=== PATIENT | female | born 1985 | race Caucasian/White ===

== ENCOUNTER 2018-03-23 18:03 | Emergency (ER) | payer MEDICAID ==
--- NOTE | 2018-03-23 18:46 | ED Physician Documentation ---
PD HPI NVD - Stated complaint Stated Complaint: VOMITING - Chief complaint Chief Complaint: General - History obtained from History obtained from: Patient - History of Present Illness Timing - onset: Today (she has had less appetite and easy satiety, not eating much and some nausea at times. Today had not had anything to eat and little to drink, and then got nauseated with vomiting. Feeling lightheaded.) Timing - details: Gradual onset, Still present Associated symptoms: Near syncope / syncope, Loss of appetite. No: Fever, Abdominal pain (but nausea and upset stomach easily for days to weeks.), Dizzy, Dysuria, Hematuria, Vaginal bleeding Contributing factors: No: Sick contact, Bad food, Travel, Recent antibiotics Worsened by: Eating Similar symptoms before: Has not had sx before Recently seen: Not recently seen Review of Systems Constitutional: denies: Fever, Chills Nose: denies: Rhinorrhea / runny nose, Congestion Throat: denies: Sore throat Cardiac: denies: Chest pain / pressure, Palpitations Respiratory: denies: Dyspnea, Cough GI: reports: Nausea, Vomiting (today). denies: Abdominal Pain, Abdominal Swelling, Diarrhea, Hematemesis, Bloody / black stool : denies: Dysuria, Frequency, Missed period Skin: denies: Rash Musculoskeletal: denies: Neck pain, Back pain Neurologic: reports: Generalized weakness, Near syncope. 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: Ovarian cysts Psych: Anxiety - Past Surgical History Past Surgical History: Yes - Present Medications Home Medications: Ambulatory Orders Medication Instructions Recorded Confirmed raNITIdine [Zantac] 150 mg PO DAILY #30 tablet 03/23/18 - Allergies Allergies/Adverse Reactions: Allergies Allergy/AdvReac Type Severity Reaction Status Date / Time codeine Allergy Hives Verified 03/23/18 18:14 Penicillins Allergy Hives Verified 03/23/18 18:14 - Social History Does the pt smoke?: No Smoking Status: Never smoker Does the pt drink ETOH?: No Does the pt have substance abuse?: No - Immunizations Immunizations are current?: Yes Immunizations: TDAP current <10years PD ED PE NORMAL - Vitals Vital signs reviewed: Yes (tachycardic) - General General: Alert and oriented X 3, No acute distress, Well developed/nourished - HEENT HEENT: Pharynx benign - Neck Neck: Supple, no meningeal sign, No adenopathy. No: Thyroid normal (some feeling of fullness in thyroid area. ) - Cardiac Cardiac: RRR, No murmur - Respiratory Respiratory: Clear bilaterally - Abdomen Abdomen: Normal bowel sounds, Soft, Non tender, Non distended, No organomegaly - Female Female : Deferred - Rectal Rectal: Deferred - Back Back: No CVA TTP - Derm Derm: Normal color, Warm and dry - Extremities Extremities: No deformity, No tenderness to palpate, Normal ROM s pain, No edema , No calf tenderness / cord - Neuro Neuro: Alert and oriented X 3, No motor deficit, Normal speech Results - Vitals Vitals: Oxygen O2 Source Room air - Labs Labs: Laboratory Tests 03/23/18 03/23/18 03/23/18 18:50 18:50 19:36 WBC 6.6 RBC 5.17 Hgb 13.8 Hct 42.4 MCV 82.1 MCH 26.7 L MCHC 32.6 RDW 13.6 Plt Count 230 MPV 9.7 Neut # 5.0 Lymph # 1.2 L [place] # 0.3 Eos # 0.1 Baso # 0.1 Absolute Nucleated RBC 0.00 Nucleated RBC % 0.0 Sodium 134 L Potassium 3.3 L Chloride 105 Carbon Dioxide 22 Anion Gap 7.0 BUN 10 Creatinine 0.7 Estimated GFR (MDRD) 96 Glucose 133 H Calcium 8.5 Magnesium 1.8 Total Bilirubin 0.2 AST 16 ALT < 10 L Alkaline Phosphatase 33 L Total Protein 6.3 L Albumin 3.7 Globulin 2.6 Albumin/Globulin Ratio 1.4 Lipase 26 TSH 3.12 Urine Color Urine Clarity Urine pH Ur Specific [place] Urine Protein Urine Glucose (UA) Urine Ketones Urine Occult Blood Urine Nitrite Urine Bilirubin Urine Urobilinogen Ur Leukocyte Esterase Ur Microscopic Review Urine Culture Comments Urine HCG, Qual 03/23/18 20:12 WBC RBC Hgb Hct MCV MCH MCHC RDW Plt Count MPV Neut # Lymph # [place] # Eos # Baso # Absolute Nucleated RBC Nucleated RBC % Sodium Potassium Chloride Carbon Dioxide Anion Gap BUN Creatinine Estimated GFR (MDRD) Glucose Calcium Magnesium Total Bilirubin AST ALT Alkaline Phosphatase Total Protein Albumin Globulin Albumin/Globulin Ratio Lipase TSH Urine Color YELLOW Urine Clarity CLEAR Urine pH 6.0 Ur Specific [place] 1.010 Urine Protein NEGATIVE Urine Glucose (UA) NEGATIVE Urine Ketones 15 H Urine Occult Blood NEGATIVE Urine Nitrite NEGATIVE Urine Bilirubin NEGATIVE Urine Urobilinogen 0.2 (NORMAL) Ur Leukocyte Esterase NEGATIVE Ur Microscopic Review NOT INDICATED Urine Culture Comments NOT INDICATED Urine HCG, Qual NEGATIVE PD MEDICAL DECISION MAKING - ED course Complexity details: considered differential (she has not had appetite and with easy satiety and then just gets "busy" with not eating or drinking regularly. Seemed to get dehydrated with symptoms today and feels better with fluids. ), d/ w patient Departure - Departure Disposition: Home, Self Care Clinical Impression: Near syncope, Dehydration Gastritis Qualifiers: Gastritis type: unspecified gastritis Chronicity: acute Gastritis bleeding: without bleeding Qualified Code(s): K29.00 - Acute gastritis without bleeding Condition: Stable Record reviewed to determine appropriate education?: Yes Instructions: ED Dehydration, ED Gastritis Follow-Up: Bisi Branch ARNP [Primary Care Provider] - Prescriptions: raNITIdine [Zantac] 150 mg PO DAILY #30 tablet Comments: Drink lots of fluids daily, at least 2 L bottles daily. Eat regularly. I wonder if you are lack of appetite and upset stomach are related to an irritation of the stomach called gastritis. Try ranitidine daily for a few weeks to a month and see if overall her symptoms are better. Follow-up with your primary care in about a week, call for an appointment. Your basic blood tests here as well as electrolytes and thyroid test are normal. Discharge Date/Time: 03/23/18 21:18
[2018-03-23] MEDS ORDERED: FAMOTIDINE 20 MG/50 ML 50 ML IV ONE (19:04)
[2018-03-23] MEDS ORDERED: SODIUM CHLORIDE 0.9% 1,000 ML IV ONE ×2 (19:04)
[2018-03-23] MEDS ORDERED: ONDANSETRON 4 MG/2 ML VIAL IVP STA (19:04)
[2018-03-23 19:16] LABS: BASOPHILS # (AUTO) 0.1 10^3/uL (0.0-0.1); BASOPHILS % (AUTO) 1.1 %; EOSINOPHILS # (AUTO) 0.1 10^3/uL (0.0-0.7); EOSINOPHILS % (AUTO) 0.9 %; HGB - HEMOGLOBIN 13.8 g/dL (12.0-16.0); LYMPHOCYTES # (AUTO) 1.2 10^3/uL (1.5-3.5); LYMPHOCYTES % (AUTO) 18.2 %; MEAN CORPUSCULAR HEMOGLOBIN 26.7 pg (27.0-31.0); MEAN CORPUSCULAR HGB CONC 32.6 g/dL (32.0-36.0); MEAN CORPUSCULAR VOLUME 82.1 fL (81.0-99.0); MEAN PLATELET VOLUME 9.7 fL (7.9-10.8); MONOCYTES # (AUTO) 0.3 10^3/uL (0.0-1.0); MONOCYTES % (AUTO) 4.1 %; NEUTROPHILS % (AUTO) 75.7 %; PLT - PLATELET COUNT 230 10^3/uL (130-450); RED BLOOD COUNT 5.17 10^6/uL (4.20-5.40); RED CELL DISTRIBUTION WIDTH 13.6 % (12.0-15.0); WHITE BLOOD COUNT 6.6 x10^3/uL (4.8-10.8)
[2018-03-23 20:21] LABS: BILIRUBIN,URINE NEGATIVE (NEGATIVE); GLUCOSE, URINE (UA) NEGATIVE (NEGATIVE); KETONES,URINE (UA) 15 mg/dL (NEGATIVE); LEUKOCYTE ESTERASE, URINE NEGATIVE (NEGATIVE); NITRITE,URINE NEGATIVE (NEGATIVE); OCCULT BLOOD,URINE NEGATIVE (NEGATIVE); PROTEIN,URINE NEGATIVE (NEGATIVE); UROBILINOGEN,URINE 0.2 (NORMAL) E.U./dL (NORMAL)
[2018-03-23 20:21] LABS: ALBUMIN 3.7 g/dL (3.2-5.5); ALBUMIN/GLOBULIN RATIO 1.4 (1.0-2.2); ALKALINE PHOSPHATASE 33 IU/L (42-121); ALT ALANINE AMINOTRANSFERASE < 10 IU/L (10-60); AST ASPARTATE AMINOTRANSFERASE 16 IU/L (10-42); BILIRUBIN,TOTAL 0.2 mg/dL (0.2-1.0); BUN - BLOOD UREA NITROGEN 10 mg/dL (6-20); CALCIUM 8.5 mg/dL (8.5-10.3); CARBON DIOXIDE - CO2 22 mmol/L (21-32); CHLORIDE 105 mmol/L (101-111); CREATININE 0.7 mg/dL (0.4-1.0); GFR - MDRD 96 (>89); GLUCOSE 133 mg/dL (70-100); LIPASE 26 U/L (22-51); MAGNESIUM 1.8 mg/dL (1.7-2.8); SODIUM 134 mmol/L (135-145); TOTAL PROTEIN 6.3 g/dL (6.7-8.2)
[2018-03-23 20:30] LABS: CLARITY,URINE CLEAR (CLEAR); HCG UR QUAL NEGATIVE
[2018-03-23 21:18] VITALS: BP 125/74
== END 2018-03-23 21:18 | disposition home or self-care (01) ==
LOC: ED 18:03
DX: R55 Syncope and collapse (principal); E86.0 Dehydration; K29.00 Acute gastritis without bleeding
CPT/HCPCS: 36415; 80053; 81001; 81003; 81025; 83690; 83735; 84443; 85025; 87086; 96361; 96365; 96375; 99283; 99284

== ENCOUNTER 2018-04-17 09:28 | Outpatient (CLI) | payer MEDICAID ==
--- NOTE | 2018-04-17 10:52 | Ultrasound Report ---
Procedure Date: 04/17/2018 Accession Number: [id number] / [id number] Procedure: US - Pelvic w/Transvaginal CPT Code: FULL RESULT: EXAM: Pelvic w/Transvaginal DATE: 04/17/2018 10:34 AM CLINICAL HISTORY: PELVIC PAIN,CHRONIC COMPARISON: 12/09/2014 pelvic ultrasound TECHNIQUE: Real time scanning by the answerer was saved static images reviewed. Transabdominal evaluation for global assessment; endovaginal scanning for detailed assessment of the uterus and adnexal structures. FINDINGS: Uterus: 9.7 x 3.2 x 4.8 cm, volume 78 cc. Anteverted position. Normal overall size and echotexture. Masses: None. Endometrium: 9.4 mm. Normal. Cervix: Unremarkable. Right Ovary: Surgically absent. No adnexal mass is seen. Left Ovary/Adnexa: 3.2 x 1.9 x 2.7 cm, volume 8.5 cc. Normal echotexture. Blood flow is present. No adnexal mass is seen. Simple cyst 1.7 x 1.4 x 1.9 cm. Free Fluid: None. Other: No significant interval change compared with 12/09/2014. IMPRESSION: Unremarkable pelvic ultrasound status post right oophorectomy. RADIA
== END 2018-04-17 09:29 | disposition home or self-care (01) ==
LOC: DI 09:28
PROVIDERS: ATTEND Nurse Practitioner Family
DX: R10.2 Pelvic and perineal pain (principal); Z90.721 Acquired absence of ovaries, unilateral
CPT/HCPCS: 76830; 76856

== ENCOUNTER 2019-03-08 15:06 | Outpatient (CLI) | payer MEDICAID ==
[2019-03-08 17:35] LABS: ALBUMIN 4.2 g/dL (3.2-5.5); ALBUMIN/GLOBULIN RATIO 1.4 (1.0-2.2); BILIRUBIN,TOTAL 0.8 mg/dL (0.2-1.0); CALCIUM 9.6 mg/dL (8.5-10.3); CREATININE 0.9 mg/dL (0.4-1.0); TOTAL PROTEIN 7.3 g/dL (6.7-8.2)
[2019-03-08 17:54] LABS: BASOPHILS % (AUTO) 0.7 %; EOSINOPHILS # (AUTO) 0.1 10^3/uL (0.0-0.7); EOSINOPHILS % (AUTO) 1.4 %; HGB - HEMOGLOBIN 13.4 g/dL (12.0-16.0); LYMPHOCYTES # (AUTO) 1.3 10^3/uL (1.5-3.5); LYMPHOCYTES % (AUTO) 25.2 %; MEAN CORPUSCULAR HEMOGLOBIN 28.8 pg (27.0-31.0); MEAN CORPUSCULAR HGB CONC 33.6 g/dL (32.0-36.0); MEAN CORPUSCULAR VOLUME 85.9 fL (81.0-99.0); MEAN PLATELET VOLUME 9.7 fL (7.9-10.8); MONOCYTES # (AUTO) 0.4 10^3/uL (0.0-1.0); MONOCYTES % (AUTO) 7.5 %; NEUTROPHILS # (AUTO) 3.4 10^3/uL (1.5-6.6); NEUTROPHILS % (AUTO) 65.2 %; PLT - PLATELET COUNT 262 10^3/uL (130-450); RED BLOOD COUNT 4.65 10^6/uL (4.20-5.40); RED CELL DISTRIBUTION WIDTH 13.4 % (12.0-15.0); WHITE BLOOD COUNT 5.2 x10^3/uL (4.8-10.8)
== END 2019-03-08 15:07 | disposition home or self-care (01) ==
LOC: LAB.F 15:06
PROVIDERS: ATTEND Registered Nurse
DX: R13.10 Dysphagia, unspecified (principal)
CPT/HCPCS: 36415; 80050

== ENCOUNTER 2020-02-03 19:17 | Outpatient (CLI) | payer MEDICAID | END 2020-02-03 19:18 | disposition home or self-care (01) | LOC: COV 19:17 | PROVIDERS: ATTEND Family Medicine | DX: R05 Cough (principal); R50.9 Fever, unspecified | CPT/HCPCS: 81599 ==

== ENCOUNTER 2020-05-13 09:59 | Outpatient (CLI) | payer MEDICAID | END 2020-05-13 10:00 | disposition home or self-care (01) | LOC: COV 09:59 | PROVIDERS: ATTEND Family Medicine | DX: R50.9 Fever, unspecified (principal); R05 Cough; R06.02 Shortness of breath; M79.10 Myalgia, unspecified site; R53.83 Other fatigue; J02.9 Acute pharyngitis, unspecified; R09.81 Nasal congestion; R11.2 Nausea with vomiting, unspecified; Z20.828 Contact with and (suspected) exposure to other viral communicable diseases ==

== ENCOUNTER 2020-08-27 07:17 | Outpatient (CLI) | payer MEDICAID ==
[2020-08-27 15:42] LABS: BASOPHILS # (AUTO) 0.1 10^3/uL (0.0-0.1); BASOPHILS % (AUTO) 1.5 %; EOSINOPHILS # (AUTO) 0.1 10^3/uL (0.0-0.7); EOSINOPHILS % (AUTO) 1.8 %; HGB - HEMOGLOBIN 13.7 g/dL (12.0-16.0); LYMPHOCYTES % (AUTO) 29.5 %; MEAN CORPUSCULAR HGB CONC 32.2 g/dL (32.0-36.0); MEAN CORPUSCULAR VOLUME 87.1 fL (81.0-99.0); MEAN PLATELET VOLUME 11.8 fL (7.9-10.8); MONOCYTES # (AUTO) 0.3 10^3/uL (0.0-1.0); MONOCYTES % (AUTO) 7.7 %; NEUTROPHILS % (AUTO) 59.2 %; PLT - PLATELET COUNT 254 10^3/uL (130-450); RED BLOOD COUNT 4.89 10^6/uL (4.20-5.40); RED CELL DISTRIBUTION WIDTH 13.7 % (12.0-15.0); WHITE BLOOD COUNT 3.4 x10^3/uL (4.8-10.8)
[2020-08-27 16:04] LABS: ALBUMIN 4.1 g/dL (3.2-5.5); ALBUMIN/GLOBULIN RATIO 1.6 (1.0-2.2); ALKALINE PHOSPHATASE 42 IU/L (42-121); ALT ALANINE AMINOTRANSFERASE 16 IU/L (10-60); AST ASPARTATE AMINOTRANSFERASE 16 IU/L (10-42); BILIRUBIN,TOTAL 0.6 mg/dL (0.2-1.0); BUN - BLOOD UREA NITROGEN 13 mg/dL (6-20); CALCIUM 9.3 mg/dL (8.5-10.3); CARBON DIOXIDE - CO2 26 mmol/L (21-32); CHLORIDE 107 mmol/L (101-111); CHOL/HDL RATIO 2.6 (<4.4); CHOLESTEROL 185 mg/dL; CREATININE 0.8 mg/dL (0.4-1.0); GLUCOSE 89 mg/dL (70-100); HDL CHOLESTEROL 71 mg/dL; SODIUM 139 mmol/L (135-145); TOTAL PROTEIN 6.7 g/dL (6.7-8.2)
[2020-08-27 16:44] LABS: FOLLICLE STIMULATING HORMONE 4.99 mIU/mL
[2020-08-27 16:45] LABS: LUTEINIZING HORMONE 5.66 mIU/mL
== END 2020-08-27 07:18 | disposition home or self-care (01) ==
LOC: LAB.S 07:17
PROVIDERS: ATTEND Registered Nurse
DX: I10 Essential (primary) hypertension (principal); Z78.0 Asymptomatic menopausal state
CPT/HCPCS: 36415; 80050; 80061; 81599; 83001; 83002; 83520; 83721

== ENCOUNTER 2020-09-03 16:34 | Outpatient (CLI) | payer MEDICAID ==
--- NOTE | 2020-09-04 09:54 | Ultrasound Report ---
PROCEDURE: Pelvic w/Transvaginal INDICATIONS: PERIMENOPAUSAL STATE TECHNIQUE: Real-time scanning was performed of the pelvic organs, with image documentation. Additional endovagi nal scanning was necessary due to incomplete visualization of the adnexal and endometrial structures by transabdominal scanning. COMPARISON: Pelvic ultrasound 6 image , 12/09/2014 FINDINGS: Transabdominal scanning: Limited scanning through the kidneys shows no hydronephrosis. No pathologi c free abdominal or pelvic fluid. Endovaginal scanning: Uterus: Uterus is normal in size at 8.8 x 3.6 x 5.3 cm. The endometrium measures 8 mm in combined t hickness. Nabothian cysts are noted. Ovaries: Right ovary is been removed. Left ovary measures 4.0 x 2.7 x 2.9 cm. Less than 12 follicles are noted. IMPRESSION: 1. Right ovarian removal. Otherwise, unremarkable exam. Reviewed by: Destini Mchugh MD on 09/04/2020 9:53 AM PST Approved by: Destini Mchugh MD on 09/04/2020 9:53 AM PST Station ID: [id number]
== END 2020-09-03 16:35 | disposition home or self-care (01) ==
LOC: DI 16:34
PROVIDERS: ATTEND Obstetrics & Gynecology
DX: Z78.0 Asymptomatic menopausal state (principal); Z90.721 Acquired absence of ovaries, unilateral
CPT/HCPCS: 76830; 76856

== ENCOUNTER 2021-09-06 11:38 | Outpatient (CLI) | payer MEDICAID ==
--- NOTE | 2021-09-06 13:01 | Ultrasound Report ---
PROCEDURE: OB First Trimester w/TV INDICATIONS: POSITIVE TEST OUTSIDE/PRIOR DATING DATA: Last menstrual period (LMP): Unknown. LMP-based estimated date of delivery (XIMENA): Unknown. First dating scan (date and location): 09/06/2022. Estimated date of delivery (XIMENA) from first dating scan: 05/01/22. TECHNIQUE: Real-time scanning was performed of the fetus and maternal pelvic organs, with image documentation. Endovaginal scanning was also performed to better visualize the fetus and maternal ovaries. COMPARISON: FINDINGS: Embryo: Intrauterine gestational sac is identified measuring 1.2 cm corresponding to 6 weeks 1 day. No pole. Heart rate: Not detected Measurement variability in dating: +/- 4 weeks by LMP, +/- 7 days by mean sac diameter (use before 6 weeks gestation if crown-rump length not able to be measured), +/- 5 days by crown-rump length (6-12 weeks gestation). Maternal organs: Ovaries demonstrate a left corpus luteal cyst. IMPRESSION: Intrauterine gestational sac measuring 6 weeks 1 day. No pole or heart tones. Recommend corre lation to [facility] and short interval imaging followup. Reviewed by: Destini Mchugh MD on 09/06/2021 1:00 PM PST Approved by: Destini Mchugh MD on 09/06/2021 1:00 PM PST Station ID: [id number]
== END 2021-09-06 11:39 | disposition home or self-care (01) ==
LOC: DI 11:38
PROVIDERS: ATTEND Obstetrics & Gynecology
DX: Z32.01 Encounter for pregnancy test, result positive (principal)

== ENCOUNTER 2021-09-17 08:00 | Outpatient (CLI) | payer MEDICAID ==
[2021-09-17 21:59] LABS: BACTERIAL VAGINOSIS DNA NEGATIVE (NEGATIVE); CANDIDA GLABRATA DNA NEGATIVE (NEGATIVE); CANDIDA GROUP DNA POSITIVE (NEGATIVE); CANDIDA KRUSEI DNA NEGATIVE (NEGATIVE); TRICHOMONAS VAGINALIS DNA NEGATIVE (NEGATIVE)
== END 2021-09-17 23:59 | disposition home or self-care (01) ==
LOC: LAB 08:00
PROVIDERS: ATTEND Obstetrics & Gynecology
DX: L29.8 Other pruritus (principal)
CPT/HCPCS: 87661; 87801

== ENCOUNTER 2021-11-15 08:00 | Outpatient (CLI) | payer MEDICAID ==
[2021-11-15 19:18] LABS: BACTERIAL VAGINOSIS DNA POSITIVE (NEGATIVE); CANDIDA GLABRATA DNA NEGATIVE (NEGATIVE); CANDIDA GROUP DNA NEGATIVE (NEGATIVE); CANDIDA KRUSEI DNA NEGATIVE (NEGATIVE); TRICHOMONAS VAGINALIS DNA NEGATIVE (NEGATIVE)
[2021-11-15 22:02] LABS: CHLAMYDIA TRACHOMATIS DNA NEGATIVE (NEGATIVE); NEISSERIA GONORRHOEAE DNA NEGATIVE (NEGATIVE); TRICHOMONAS VAGINALIS DNA NEGATIVE (NEGATIVE)
== END 2021-11-15 23:59 | disposition home or self-care (01) ==
LOC: LAB.WC 08:00
PROVIDERS: ATTEND Obstetrics & Gynecology
DX: N89.8 Other specified noninflammatory disorders of vagina (principal)
CPT/HCPCS: 87491; 87591; 87661; 87801

== ENCOUNTER 2021-12-02 11:40 | Outpatient (CLI) | payer MEDICAID | END 2021-12-02 23:59 | disposition home or self-care (01) | LOC: LAB.S 11:40 | PROVIDERS: ATTEND Physician Assistant Medical | DX: J39.2 Other diseases of pharynx (principal) | CPT/HCPCS: 87070 ==

== ENCOUNTER 2021-12-22 08:00 | Outpatient (CLI) | payer MEDICAID ==
[2021-12-22 21:10] LABS: CHLAMYDIA TRACHOMATIS DNA NEGATIVE (NEGATIVE); NEISSERIA GONORRHOEAE DNA NEGATIVE (NEGATIVE); TRICHOMONAS VAGINALIS DNA NEGATIVE (NEGATIVE)
[2021-12-22 23:10] LABS: BACTERIAL VAGINOSIS DNA NEGATIVE (NEGATIVE); CANDIDA GLABRATA DNA NEGATIVE (NEGATIVE); CANDIDA GROUP DNA POSITIVE (NEGATIVE); CANDIDA KRUSEI DNA NEGATIVE (NEGATIVE); TRICHOMONAS VAGINALIS DNA NEGATIVE (NEGATIVE)
== END 2021-12-22 23:59 | disposition home or self-care (01) ==
LOC: LAB.WC 08:00
PROVIDERS: ATTEND Nurse Practitioner Obstetrics & Gynecology
DX: K13.79 Other lesions of oral mucosa (principal); N76.0 Acute vaginitis; J39.2 Other diseases of pharynx
CPT/HCPCS: 81599; 87070; 87205; 87254; 87255; 87491; 87591; 87661; 87801

== ENCOUNTER 2021-12-23 11:05 | Outpatient (CLI) | payer MEDICAID ==
[2021-12-24 10:35] LABS: HEPATITIS B SURFACE ANTIGEN NON-REACTIVE (NON-REACTIVE); HEPATITIS C ANTIBODY NON-REACTIVE (NON-REACTIVE)
[2021-12-25 12:47] LABS: HSV 1 IGG TYPE SPECIFIC AB 2.19 index; HSV 2 IGG TYPE SPECIFIC AB <0.90 index
== END 2021-12-23 11:06 | disposition home or self-care (01) ==
LOC: LAB.S 11:05
PROVIDERS: ATTEND Nurse Practitioner Obstetrics & Gynecology
DX: K13.79 Other lesions of oral mucosa (principal); J39.2 Other diseases of pharynx; N76.0 Acute vaginitis
CPT/HCPCS: 36415; 86592; 86695; 86696; 86803; 87340; 87389

== ENCOUNTER 2021-12-28 10:27 | Outpatient (CLI) | payer MEDICAID ==
[2021-12-29 13:31] LABS: HIV AG/AB 4TH GEN NON-REACTIVE (NON-REACTIVE)
== END 2021-12-28 10:28 | disposition home or self-care (01) ==
LOC: LAB.S 10:27
PROVIDERS: ATTEND Nurse Practitioner Obstetrics & Gynecology
DX: K13.79 Other lesions of oral mucosa (principal); J39.2 Other diseases of pharynx; N76.0 Acute vaginitis
CPT/HCPCS: 36415; 87389

== ENCOUNTER 2022-01-20 08:00 | Outpatient (CLI) | payer MEDICAID ==
[2022-01-20 22:31] LABS: BACTERIAL VAGINOSIS DNA NEGATIVE (NEGATIVE); CANDIDA GLABRATA DNA NEGATIVE (NEGATIVE); CANDIDA GROUP DNA NEGATIVE (NEGATIVE); CANDIDA KRUSEI DNA NEGATIVE (NEGATIVE); TRICHOMONAS VAGINALIS DNA NEGATIVE (NEGATIVE)
== END 2022-01-20 23:59 | disposition home or self-care (01) ==
LOC: LAB.WC 08:00
PROVIDERS: ATTEND Obstetrics & Gynecology
DX: N76.0 Acute vaginitis (principal)
CPT/HCPCS: 87661; 87801

== ENCOUNTER 2022-02-28 08:00 | Outpatient (CLI) | payer MEDICAID ==
[2022-02-28 20:25] LABS: BILIRUBIN,URINE NEGATIVE (NEGATIVE); GLUCOSE, URINE (UA) NEGATIVE (NEGATIVE); KETONES,URINE (UA) 15 mg/dL (NEGATIVE); LEUKOCYTE ESTERASE, URINE NEGATIVE (NEGATIVE); NITRITE,URINE NEGATIVE (NEGATIVE); OCCULT BLOOD,URINE NEGATIVE (NEGATIVE); PROTEIN,URINE NEGATIVE (NEGATIVE); UROBILINOGEN,URINE 0.2 (NORMAL) E.U./dL (NORMAL)
[2022-02-28 20:34] LABS: CLARITY,URINE CLEAR (CLEAR); RBC,URINE 0-5 /HPF (0-5); WBC,URINE 0-3 /HPF (0-5)
[2022-02-28 20:35] LABS: BACTERIA,URINE None Seen /HPF (None Seen); SQUAMOUS EPITHELIAL CELL,UR FEW Squamous (<= Few)
[2022-02-28 21:45] LABS: BACTERIAL VAGINOSIS DNA POSITIVE (NEGATIVE)
[2022-02-28 21:46] LABS: CANDIDA GLABRATA DNA NEGATIVE (NEGATIVE); CANDIDA GROUP DNA NEGATIVE (NEGATIVE); CANDIDA KRUSEI DNA NEGATIVE (NEGATIVE); TRICHOMONAS VAGINALIS DNA NEGATIVE (NEGATIVE)
[2022-02-28 23:01] LABS: CHLAMYDIA TRACHOMATIS DNA NEGATIVE (NEGATIVE); NEISSERIA GONORRHOEAE DNA NEGATIVE (NEGATIVE)
== END 2022-02-28 23:59 | disposition home or self-care (01) ==
LOC: LAB.S 08:00
PROVIDERS: ATTEND Physician Assistant Medical
DX: R30.0 Dysuria (principal); N89.8 Other specified noninflammatory disorders of vagina
CPT/HCPCS: 81001; 81514; 87086; 87491; 87591; 87661

== ENCOUNTER 2022-05-17 15:52 | Outpatient (CLI) | payer MEDICAID ==
--- NOTE | 2022-05-17 16:41 | XRAY Report ---
PROCEDURE: Cervical Spine w/Flex/Ext INDICATIONS: TINGLING IN HANDS TECHNIQUE: 7 views of the cervical spine were acquired. COMPARISON: MR cervical spine: 614 FINDINGS: Bones: No fractures or dislocations to the C7-T1 level. No suspicious bony lesions. There is rever tal of normal cervical curvature with apex at C5-6. Moderate disc space narrowing is present at C5-6 and C6-7. There is normal range of motion between flexion and extension, with preserved normal bony a lignment. Foramina are patent. Soft tissues: Prevertebral soft tissues are normal in thickness. IMPRESSION: Foramina are patent. Reversal cervical curvature is present as above. Reviewed by: Destini Mchugh MD on 05/17/2022 4:39 PM PDT Approved by: Destini Mchugh MD on 05/17/2022 4:39 PM PDT Station ID: [id number]
== END 2022-05-17 15:53 | disposition home or self-care (01) ==
LOC: DI.S 15:52
PROVIDERS: ATTEND Registered Nurse
DX: R20.2 Paresthesia of skin (principal); R20.0 Anesthesia of skin

== ENCOUNTER 2022-09-02 08:00 | Outpatient (CLI) | payer MEDICAID ==
[2022-09-02 15:10] LABS: BILIRUBIN,URINE NEGATIVE (NEGATIVE); GLUCOSE, URINE (UA) NEGATIVE (NEGATIVE); KETONES,URINE (UA) NEGATIVE (NEGATIVE); LEUKOCYTE ESTERASE, URINE NEGATIVE (NEGATIVE); NITRITE,URINE NEGATIVE (NEGATIVE); OCCULT BLOOD,URINE NEGATIVE (NEGATIVE); PH,URINE 6.5 PH (5.0-7.5); PROTEIN,URINE NEGATIVE (NEGATIVE); UROBILINOGEN,URINE 0.2 (NORMAL) E.U./dL (NORMAL)
[2022-09-02 15:11] LABS: CLARITY,URINE CLEAR (CLEAR)
[2022-09-02 15:30] LABS: BACTERIA,URINE None Seen /HPF (None Seen); RBC,URINE None Seen /HPF (0-5); SQUAMOUS EPITHELIAL CELL,UR FEW Squamous (<= Few); WBC,URINE 0-3 /HPF (0-5)
[2022-09-02 22:48] LABS: BACTERIAL VAGINOSIS DNA NEGATIVE (NEGATIVE); CANDIDA GLABRATA DNA NEGATIVE (NEGATIVE); CANDIDA GROUP DNA NEGATIVE (NEGATIVE); CANDIDA KRUSEI DNA NEGATIVE (NEGATIVE); TRICHOMONAS VAGINALIS DNA NEGATIVE (NEGATIVE)
[2022-09-02 23:39] LABS: CHLAMYDIA TRACHOMATIS DNA NEGATIVE (NEGATIVE); NEISSERIA GONORRHOEAE DNA NEGATIVE (NEGATIVE)
== END 2022-09-02 23:58 | disposition home or self-care (01) ==
LOC: LAB.S 08:00
PROVIDERS: ATTEND Emergency Medicine
DX: N71.9 Inflammatory disease of uterus, unspecified (principal); N76.0 Acute vaginitis
CPT/HCPCS: 81001; 81514; 87070; 87086; 87491; 87591; 87661

== ENCOUNTER 2022-12-27 08:00 | Outpatient (CLI) | payer MEDICAID ==
[2022-12-27 22:43] LABS: BACTERIAL VAGINOSIS DNA POSITIVE (NEGATIVE); CANDIDA KRUSEI DNA NEGATIVE (NEGATIVE); TRICHOMONAS VAGINALIS DNA NEGATIVE (NEGATIVE)
[2022-12-27 22:44] LABS: CANDIDA GLABRATA DNA NEGATIVE (NEGATIVE); CANDIDA GROUP DNA NEGATIVE (NEGATIVE)
[2022-12-27 23:56] LABS: CHLAMYDIA TRACHOMATIS DNA NEGATIVE (NEGATIVE)
[2022-12-27 23:57] LABS: NEISSERIA GONORRHOEAE DNA NEGATIVE (NEGATIVE)
== END 2022-12-27 23:59 | disposition home or self-care (01) ==
LOC: LAB.WC 08:00
PROVIDERS: ATTEND Obstetrics & Gynecology
DX: N89.8 Other specified noninflammatory disorders of vagina (principal)
CPT/HCPCS: 81514; 87491; 87591; 87661

== ENCOUNTER 2022-12-28 08:09 | Outpatient (CLI) | payer MEDICAID ==
[2022-12-28 20:51] LABS: ESTIMATED AVERAGE GLUCOSE 105 mg/dL (70-100); HEMOGLOBIN A1c% 5.3 % (4.27-6.07)
== END 2022-12-28 08:10 | disposition home or self-care (01) ==
LOC: LAB.S 08:09
PROVIDERS: ATTEND Obstetrics & Gynecology
DX: R63.1 Polydipsia (principal)
CPT/HCPCS: 36415; 83036

== ENCOUNTER 2023-01-11 14:00 | Outpatient (CLI) | payer MEDICAID ==
[2023-01-12 22:54] LABS: BACTERIAL VAGINOSIS DNA NEGATIVE (NEGATIVE); CANDIDA GLABRATA DNA NEGATIVE (NEGATIVE); CANDIDA GROUP DNA POSITIVE (NEGATIVE); CANDIDA KRUSEI DNA NEGATIVE (NEGATIVE); TRICHOMONAS VAGINALIS DNA NEGATIVE (NEGATIVE)
== END 2023-01-11 23:59 | disposition home or self-care (01) ==
LOC: LAB.WC 14:00
PROVIDERS: ATTEND Obstetrics & Gynecology
DX: N76.0 Acute vaginitis (principal)
CPT/HCPCS: 81514

== ENCOUNTER 2023-02-02 08:00 | Outpatient (CLI) | payer MEDICAID ==
[2023-02-02 22:44] LABS: BACTERIAL VAGINOSIS DNA POSITIVE (NEGATIVE); CANDIDA GLABRATA DNA NEGATIVE (NEGATIVE); CANDIDA GROUP DNA NEGATIVE (NEGATIVE); CANDIDA KRUSEI DNA NEGATIVE (NEGATIVE); TRICHOMONAS VAGINALIS DNA NEGATIVE (NEGATIVE)
== END 2023-02-02 23:59 | disposition home or self-care (01) ==
LOC: LAB.WC 08:00
PROVIDERS: ATTEND Nurse Practitioner
DX: N76.0 Acute vaginitis (principal)
CPT/HCPCS: 81514

== ENCOUNTER 2023-04-28 04:19 | Emergency (ER) | payer MEDICAID ==
--- NOTE | 2023-04-28 04:43 | ED Physician Documentation ---
PD HPI FEMALE - Stated complaint Stated Complaint: FEMALE - Chief complaint Chief Complaint: UTI - History obtained from History obtained from: Patient - Additional information Additional information: HPI from patient. 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 Denies chance of . Has had only two previous UTIs, one of which was in childhood, and thus she cannot say if these symptoms are similar to previous UTIs. Review of Systems Constitutional: denies: Fever GI: denies: Abdominal Pain, Nausea, Vomiting : reports: Dysuria, Frequency. 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 Psych: Anxiety - Past Surgical History Past Surgical History: Yes /VIDEO TAPE TRANSFERRER: Oophrectomy - Present Medications Home Medications: Ambulatory Orders Medication Instructions Recorded Confirmed raNITIdine [Zantac] 150 mg PO DAILY #30 tablet 03/23/18 Nitrofurantoin [Macrobid] 100 mg PO BID #10 cap 04/28/23 Phenazopyridine HCl [Pyridium] 200 mg PO TID PRN #6 tablet 04/28/23 - Allergies Allergies/Adverse Reactions: Allergies Allergy/AdvReac Type Severity Reaction Status Date / Time codeine Allergy Hives Verified 04/28/23 04:38 Penicillins Allergy Hives Verified 04/28/23 04:38 - Social History Does the pt smoke?: No Smoking Status: Never smoker Does the pt drink ETOH?: No Does the pt have substance abuse?: No - Immunizations Immunizations are current?: Yes Immunizations: TDAP current <10years - POLST Patient has POLST: No PD ED PE NORMAL - Vitals Vital signs reviewed: Yes - General General: Alert and oriented X 3, No acute distress, Well developed/nourished - Abdomen Abdomen: Soft, Non tender, Non distended - Back Back: No CVA TTP Results - Vitals Vitals: Vital Signs - 24 hr 04/28/23 04/28/23 04:34 05:56 Temperature 36.6 C Heart Rate 74 71 Respiratory 17 16 Rate Blood Pressure 129/97 H 124/94 H O2 Saturation 100 100 Oxygen O2 Source Room air - Labs Labs: Laboratory Tests 04/28/23 04:58 Urine Color YELLOW Urine Clarity HAZY Urine pH 7.5 Ur Specific [place] 1.020 Urine Protein 30 H Urine Glucose (UA) NEGATIVE Urine Ketones NEGATIVE Urine Occult Blood MODERATE H Urine Nitrite NEGATIVE Urine Bilirubin NEGATIVE Urine Urobilinogen 0.2 (NORMAL) Ur Leukocyte Esterase SMALL H Urine RBC 6-10 H Urine WBC >25 H Ur Squamous Epith Cells RARE Squamous Urine Bacteria Few Ur Microscopic Review INDICATED Urine Culture Comments INDICATED Urine HCG, Qual NEGATIVE PD Medical Decision Making - ED course Complexity details: reviewed results, considered differential, d/w patient ED course: HPI s/o UTI and urinalysis is c/w UTI with 6-10 RBC/hpf and >25 WBC/hpf, rare squamous cells although only few bacteria. UHCG is negative. Results d/w patient. She is given PO pyridium and macrobid with prescriptions for both of these medications electronically submitted to [facility] in [place]. Results d/w patient, return precautions reviewed Departure - Departure Disposition: Home, Self Care Clinical Impression: Urinary tract infection Condition: Good Instructions: ED UTI Cystitis Female Prescriptions: Nitrofurantoin [Macrobid] 100 mg PO BID #10 cap Phenazopyridine HCl [Pyridium] 200 mg PO TID PRN #6 tablet PRN Reason: dysuria Comments: The urinalysis performed tonight is consistent with a urinary tract infection. This would account for your symptoms. You are given a dose of an antibiotic (nitrofurantoin) as well as a dose of phenazopyridine (helps alleviate the symptoms associated with urinary tract infection) in the emergency department And prescriptions for both these medications have been electronically submitted to the [facility] in [place]. Note that only two days worth of the phenazopyridine is being provided because the antibiotic should markedly improve symptoms after 2 days into the antibiotic course. Discharge Date/Time: 04/28/23 05:56
[2023-04-28 05:04] LABS: BILIRUBIN,URINE NEGATIVE (NEGATIVE); GLUCOSE, URINE (UA) NEGATIVE (NEGATIVE); KETONES,URINE (UA) NEGATIVE (NEGATIVE); LEUKOCYTE ESTERASE, URINE SMALL (NEGATIVE); NITRITE,URINE NEGATIVE (NEGATIVE); OCCULT BLOOD,URINE MODERATE (NEGATIVE); PH,URINE 7.5 PH (5.0-7.5); PROTEIN,URINE 30 mg/dL (NEGATIVE); UROBILINOGEN,URINE 0.2 (NORMAL) E.U./dL (NORMAL)
[2023-04-28 05:10] LABS: BACTERIA,URINE Few /HPF (None Seen); CLARITY,URINE HAZY (CLEAR); HCG UR QUAL NEGATIVE; SQUAMOUS EPITHELIAL CELL,UR RARE Squamous (<= Few); WBC,URINE >25 /HPF (0-5)
[2023-04-28] MEDS ORDERED: NITROFURANTOIN MACRO 100 MG CAPSULE PO STA (05:39)
[2023-04-28] MEDS ORDERED: PHENAZOPYRIDINE 100 MG TABLET PO STA (05:39)
[2023-04-28 06:00] VITALS: BP 124/94
== END 2023-04-28 05:56 | disposition home or self-care (01) ==
LOC: ED 04:19
DX: N39.0 Urinary tract infection, site not specified (principal)
CPT/HCPCS: 81001; 81025; 87077; 87086; 99283; A9270; 81003

== ENCOUNTER 2023-06-22 07:39 | Outpatient (CLI) | payer MEDICAID ==
[2023-06-22 14:51] LABS: ALBUMIN 3.9 g/dL (3.2-5.5); ALBUMIN/GLOBULIN RATIO 1.4 (1.0-2.2); ALKALINE PHOSPHATASE 48 IU/L (42-121); ALT ALANINE AMINOTRANSFERASE 16 IU/L (10-60); AST ASPARTATE AMINOTRANSFERASE 18 IU/L (10-42); BILIRUBIN,TOTAL 0.3 mg/dL (0.2-1.0); BUN - BLOOD UREA NITROGEN 11 mg/dL (6-20); CALCIUM 9.3 mg/dL (8.5-10.3); CARBON DIOXIDE - CO2 29 mmol/L (21-32); CHLORIDE 106 mmol/L (101-111); CHOL/HDL RATIO 2.4 (<4.4); CHOLESTEROL 175 mg/dL; CREATININE 0.9 mg/dL (0.6-1.3); GFR - MDRD 70 (>89); GLUCOSE 76 mg/dL (74-104); HDL CHOLESTEROL 73 mg/dL; LDL CHOLESTEROL,CALCULATED 89 mg/dL; LDL/HDL RATIO 1.2 (<4.4); POTASSIUM 4.1 mmol/L (3.5-4.5); SODIUM 137 mmol/L (135-145); TOTAL PROTEIN 6.6 g/dL (6.4-8.9); TRIGLYCERIDES 66 mg/dL (48-352); VLDL CHOLESTEROL 13 mg/dL
[2023-06-22 14:54] LABS: BASOPHILS # (AUTO) 0.1 10^3/uL (0.0-0.1); BASOPHILS % (AUTO) 1.1 %; EOSINOPHILS # (AUTO) 0.2 10^3/uL (0.0-0.7); EOSINOPHILS % (AUTO) 3.2 %; HCT - HEMATOCRIT 41.2 % (37.0-47.0); LYMPHOCYTES # (AUTO) 1.4 10^3/uL (1.5-3.5); LYMPHOCYTES % (AUTO) 30.2 %; MEAN CORPUSCULAR HEMOGLOBIN 27.8 pg (27.0-31.0); MEAN CORPUSCULAR HGB CONC 31.6 g/dL (32.0-36.0); MEAN PLATELET VOLUME 11.2 fL (7.9-10.8); MONOCYTES # (AUTO) 0.4 10^3/uL (0.0-1.0); MONOCYTES % (AUTO) 8.6 %; NEUTROPHILS # (AUTO) 2.7 10^3/uL (1.5-6.6); NEUTROPHILS % (AUTO) 56.7 %; PLT - PLATELET COUNT 269 10^3/uL (130-450); RED BLOOD COUNT 4.68 10^6/uL (4.20-5.40); RED CELL DISTRIBUTION WIDTH 13.5 % (12.0-15.0); WHITE BLOOD COUNT 4.7 x10^3/uL (4.8-10.8)
[2023-06-22 15:06] LABS: THYROID STIMULATING HORMONE 3.17 uIU/mL (0.34-5.60)
== END 2023-06-22 07:40 | disposition home or self-care (01) ==
LOC: LAB.S 07:39
PROVIDERS: ATTEND Registered Nurse
DX: I10 Essential (primary) hypertension (principal); Z79.899 Other long term (current) drug therapy; Z13.0 Encounter for screening for diseases of the blood and blood-forming organs and certain disorders involving the immune mechanism; Z13.9 Encounter for screening, unspecified
CPT/HCPCS: 36415; 80050; 80061; 83721

== ENCOUNTER 2023-07-18 08:00 | Outpatient (CLI) | payer MEDICAID ==
[2023-07-18 18:21] LABS: BACTERIAL VAGINOSIS DNA POSITIVE (NEGATIVE); CANDIDA GLABRATA DNA NEGATIVE (NEGATIVE); CANDIDA GROUP DNA NEGATIVE (NEGATIVE); CANDIDA KRUSEI DNA NEGATIVE (NEGATIVE); TRICHOMONAS VAGINALIS DNA NEGATIVE (NEGATIVE)
[2023-07-18 20:33] LABS: CHLAMYDIA TRACHOMATIS DNA NEGATIVE (NEGATIVE); NEISSERIA GONORRHOEAE DNA NEGATIVE (NEGATIVE)
== END 2023-07-18 23:59 | disposition home or self-care (01) ==
LOC: LAB.S 08:00
PROVIDERS: ATTEND Physician Assistant
DX: Z01.419 Encounter for gynecological examination (general) (routine) without abnormal findings (principal); N76.0 Acute vaginitis
CPT/HCPCS: 81514; 87491; 87591; 87661

== ENCOUNTER 2023-08-01 07:52 | Outpatient (CLI) | payer MEDICAID ==
--- NOTE | 2023-08-02 13:25 | Mammography Report ---
BILATERAL DIGITAL SCREENING MAMMOGRAM 3D/2D WITH EXAGGERATED CC: 08/01/2023 CLINICAL: Routine screening. Family history of breast cancer. Comparison is made to exam dated: 10/06/2016 mammogram - [facility]. Both breasts are extremely dense, which lowers the sensitivity of mammography (category d />75% gland ular tissue). No significant masses, calcifications, or other findings are seen in either breast. There has been no significant interval change. IMPRESSION: NEGATIVE There is no mammographic evidence of malignancy. A 1 year screening mammogram is recommended. Based on the Tyrer Cuzick model (a risk assessment model) the patients lifetime risk is 18.8% and he r 10 year risk is 2.4%. According to the ACR, ACS, and NCCN guidelines, an annual breast MRI exam debbie ng with mammogram is recommended if the patients lifetime risk is 20% or greater. This exam was interpreted at Station ID: [id number]. NOTE: For mammograms, a report in lay terms will be sent to the patient. Approximately 15% of breast malignancies will not be visualized mammographically. In the management of a palpable breast mass, a negative mammogram must not discourage biopsy of a clinically suspicious lesion. Electronically Signed By: Kishore méndez/efe:08/01/2023 11:48:32 letter sent: No_Letter ACR BI-RADS Category 1: Negative 3341F PARENCHYMAL PATTERN: (VD) - The breast(s) demonstrate(s) extremely dense parenchyma, limiting the sen sitivity of mammography. BI-RADS CATEGORY: (1) - 1 Mammogram [id number] 1 year screening LATERALITY: (B)
== END 2023-08-01 07:53 | disposition home or self-care (01) ==
LOC: DI.S 07:52
DX: Z12.31 Encounter for screening mammogram for malignant neoplasm of breast (principal); Z80.3 Family history of malignant neoplasm of breast

== ENCOUNTER 2023-08-17 08:00 | Outpatient (CLI) | payer MEDICAID ==
[2023-08-17 20:24] LABS: BACTERIAL VAGINOSIS DNA POSITIVE (NEGATIVE); CANDIDA GLABRATA DNA NEGATIVE (NEGATIVE); CANDIDA GROUP DNA NEGATIVE (NEGATIVE); CANDIDA KRUSEI DNA NEGATIVE (NEGATIVE); TRICHOMONAS VAGINALIS DNA NEGATIVE (NEGATIVE)
[2023-08-17 21:46] LABS: CHLAMYDIA TRACHOMATIS DNA NEGATIVE (NEGATIVE); NEISSERIA GONORRHOEAE DNA NEGATIVE (NEGATIVE)
== END 2023-08-17 23:59 | disposition home or self-care (01) ==
LOC: LAB.WC 08:00
PROVIDERS: ATTEND Nurse Practitioner
DX: N76.0 Acute vaginitis (principal)
CPT/HCPCS: 81514; 81599; 87491; 87591; 87661

== ENCOUNTER 2023-08-17 11:28 | Outpatient (CLI) | payer MEDICAID ==
[2023-08-19 13:09] LABS: ANTINUCLEAR ANTIBODIES IFA Negative (.)
== END 2023-08-17 11:29 | disposition home or self-care (01) ==
LOC: LAB 11:28
PROVIDERS: ATTEND Nurse Practitioner
DX: R20.2 Paresthesia of skin (principal); Z79.899 Other long term (current) drug therapy; N76.0 Acute vaginitis
CPT/HCPCS: 36415; 81514; 81599; 86038; 87109; 87491; 87591; 87661

== ENCOUNTER 2023-10-22 12:28 | Emergency (ER) | payer MEDICAID ==
[2023-10-22] MEDS ORDERED: SODIUM CHLORIDE 0.9% 1,000 ML IV STA (13:03)
[2023-10-22 13:25] LABS: BASOPHILS # (AUTO) 0.1 10^3/uL (0.0-0.1); BASOPHILS % (AUTO) 0.8 %; EOSINOPHILS # (AUTO) 0.1 10^3/uL (0.0-0.7); EOSINOPHILS % (AUTO) 1.4 %; HCT - HEMATOCRIT 41.2 % (37.0-47.0); HGB - HEMOGLOBIN 13.4 g/dL (12.0-16.0); LYMPHOCYTES # (AUTO) 1.5 10^3/uL (1.5-3.5); LYMPHOCYTES % (AUTO) 16.3 %; MEAN CORPUSCULAR HEMOGLOBIN 27.8 pg (27.0-31.0); MEAN CORPUSCULAR HGB CONC 32.5 g/dL (32.0-36.0); MEAN CORPUSCULAR VOLUME 85.5 fL (81.0-99.0); MEAN PLATELET VOLUME 10.8 fL (7.9-10.8); MONOCYTES # (AUTO) 0.6 10^3/uL (0.0-1.0); MONOCYTES % (AUTO) 6.6 %; NEUTROPHILS # (AUTO) 6.8 10^3/uL (1.5-6.6); NEUTROPHILS % (AUTO) 74.7 %; PLT - PLATELET COUNT 266 10^3/uL (130-450); RED BLOOD COUNT 4.82 10^6/uL (4.20-5.40); RED CELL DISTRIBUTION WIDTH 13.2 % (12.0-15.0); WHITE BLOOD COUNT 9.2 x10^3/uL (4.8-10.8)
[2023-10-22 13:39] LABS: ALBUMIN 4.3 g/dL (3.2-5.5); ALBUMIN/GLOBULIN RATIO 1.7 (1.0-2.2); BILIRUBIN,TOTAL 0.4 mg/dL (0.2-1.0); CREATININE 0.8 mg/dL (0.6-1.3); TOTAL PROTEIN 6.9 g/dL (6.4-8.9)
[2023-10-22 13:51] LABS: BILIRUBIN,URINE NEGATIVE (NEGATIVE); GLUCOSE, URINE (UA) NEGATIVE (NEGATIVE); KETONES,URINE (UA) NEGATIVE (NEGATIVE); LEUKOCYTE ESTERASE, URINE SMALL (NEGATIVE); NITRITE,URINE NEGATIVE (NEGATIVE); OCCULT BLOOD,URINE SMALL (NEGATIVE); PROTEIN,URINE NEGATIVE (NEGATIVE); UROBILINOGEN,URINE 0.2 (NORMAL) E.U./dL (NORMAL)
[2023-10-22 14:01] LABS: CLARITY,URINE CLEAR (CLEAR); HCG UR QUAL NEGATIVE
[2023-10-22 14:12] LABS: RBC,URINE 0-5 /HPF (0-5); SQUAMOUS EPITHELIAL CELL,UR RARE Squamous (<= Few); WBC,URINE >25 /HPF (0-5)
[2023-10-22 14:13] LABS: BACTERIA,URINE Rare /HPF (None Seen); WBC CLUMPS,URINE PRESENT
--- NOTE | 2023-10-22 15:05 | ED Physician Documentation ---
PD HPI FEMALE - Stated complaint Stated Complaint: ,NAUSEA, - Chief complaint Chief Complaint: Abd Pain - History obtained from History obtained from: Patient - Additional information Additional information: 38yoF presents for dysuria, lumbar back pain and nausea. Patient states she is concerned that she may have a urinary tract infection. 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 She states that during this workup she had laboratory work that showed she had a problem with her white blood cells and may be her red blood cells, but she states it was not explained to her and she is concerned that this may be affecting her urinary tract and causing infections. Denies fevers or chills. Review of Systems Constitutional: denies: Fever, Chills GI: reports: Nausea. denies: Abdominal Pain, Vomiting : reports: Dysuria, Frequency, Hesitancy. denies: Unable to Void, Hematuria Musculoskeletal: reports: Back pain. 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 Psych: Anxiety - Past Surgical History Past Surgical History: Yes /HOSPICE SPIRITUAL CARE COORDINATOR: Oophrectomy - Present Medications Home Medications: Ambulatory Orders Medication Instructions Recorded Confirmed raNITIdine [Zantac] 150 mg PO DAILY #30 tablet 03/23/18 Nitrofurantoin [Macrobid] 100 mg PO BID #10 cap 04/28/23 Phenazopyridine HCl [Pyridium] 200 mg PO TID PRN #6 tablet 04/28/23 Cefpodoxime Proxetil [Vantin] 200 mg PO Q12H #14 tablet 10/22/23 - Allergies Allergies/Adverse Reactions: Allergies Allergy/AdvReac Type Severity Reaction Status Date / Time codeine Allergy Hives Verified 04/28/23 04:38 Penicillins Allergy Hives Verified 04/28/23 04:38 - Social History Does the pt smoke?: No Smoking Status: Never smoker Does the pt drink ETOH?: No Does the pt have substance abuse?: No - Immunizations Immunizations are current?: Yes Immunizations: TDAP current <10years - POLST Patient has POLST: No PD ED PE NORMAL - Vitals Vital signs reviewed: Yes - General General: Alert and oriented X 3, No acute distress, Well developed/nourished - HEENT HEENT: Atraumatic - Cardiac Cardiac: RRR, Strong equal pulses - Respiratory Respiratory: No respiratory distress, Clear bilaterally - Abdomen Abdomen: Soft, Non tender, Non distended - Back Back: No CVA TTP, No spinal TTP - Derm Derm: Normal color, Warm and dry, No rash - Extremities Extremities: No deformity, No tenderness to palpate, Normal ROM s pain, No edema - Neuro Neuro: Alert and oriented X 3, 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, No motor deficit, Normal speech - Psych Psych: Normal mood, Normal affect Results - Vitals Vitals: Vital Signs - 24 hr 10/22/23 10/22/23 10/22/23 12:38 15:08 16:22 Temperature 36.7 C 36.8 C Heart Rate 88 91 Heart Rate [ 77 Sitting] Heart Rate [ 78 Standing] Heart Rate [ 74 Supine] Respiratory 18 18 Rate Blood Pressure 152/99 H 134/81 H Blood Pressure 137/73 H [Sitting] Blood Pressure 126/84 H [Standing] Blood Pressure 124/86 H [Supine] O2 Saturation 100 99 Oxygen O2 Source Room air - Labs Labs: Microbiology 10/22/23 13:41 Urine Culture - Final Urine,Clean Catch No growth Laboratory Tests 10/22/23 10/22/23 10/22/23 13:13 13:13 13:41 WBC 9.2 RBC 4.82 Hgb 13.4 Hct 41.2 MCV 85.5 MCH 27.8 MCHC 32.5 RDW 13.2 Plt Count 266 MPV 10.8 Neut # (Auto) 6.8 H Lymph # (Auto) 1.5 [place] # (Auto) 0.6 Eos # (Auto) 0.1 Baso # (Auto) 0.1 Absolute Nucleated RBC 0.00 Nucleated RBC % 0.0 Sodium 137 Potassium 4.0 Chloride 106 Carbon Dioxide 25 Anion Gap 6.0 BUN 14 Creatinine 0.8 Estimated GFR (MDRD) 80 L Glucose 75 Calcium 10.0 Total Bilirubin 0.4 AST 14 ALT 12 Alkaline Phosphatase 43 Total Protein 6.9 Albumin 4.3 Globulin 2.6 Albumin/Globulin Ratio 1.7 Urine Color YELLOW Urine Clarity CLEAR Urine pH 6.0 Ur Specific [place] <=1.005 Urine Protein NEGATIVE Urine Glucose (UA) NEGATIVE Urine Ketones NEGATIVE Urine Occult Blood SMALL H Urine Nitrite NEGATIVE Urine Bilirubin NEGATIVE Urine Urobilinogen 0.2 (NORMAL) Ur Leukocyte Esterase SMALL H Urine RBC 0-5 Urine WBC >25 H Urine WBC Clumps PRESENT Ur Squamous Epith Cells RARE Squamous Urine Bacteria Rare Ur Microscopic Review INDICATED Urine Culture Comments INDICATED Urine HCG, Qual NEGATIVE C. glabrata (PCR) C. krusei (PCR) Monica species DNA T. vaginalis (PCR) Bact Vaginosis (PCR) 10/22/23 13:47 WBC RBC Hgb Hct MCV MCH MCHC RDW Plt Count MPV Neut # (Auto) Lymph # (Auto) [place] # (Auto) Eos # (Auto) Baso # (Auto) Absolute Nucleated RBC Nucleated RBC % Sodium Potassium Chloride Carbon Dioxide Anion Gap BUN Creatinine Estimated GFR (MDRD) Glucose Calcium Total Bilirubin AST ALT Alkaline Phosphatase Total Protein Albumin Globulin Albumin/Globulin Ratio Urine Color Urine Clarity Urine pH Ur Specific [place] Urine Protein Urine Glucose (UA) Urine Ketones Urine Occult Blood Urine Nitrite Urine Bilirubin Urine Urobilinogen Ur Leukocyte Esterase Urine RBC Urine WBC Urine WBC Clumps Ur Squamous Epith Cells Urine Bacteria Ur Microscopic Review Urine Culture Comments Urine HCG, Qual C. glabrata (PCR) NEGATIVE C. krusei (PCR) NEGATIVE Monica species DNA NEGATIVE T. vaginalis (PCR) NEGATIVE Bact Vaginosis (PCR) NEGATIVE PD Medical Decision Making - ED course Complexity details: reviewed old records, reviewed results, re-evaluated patient, considered differential, d/w patient ED course: Dysuria, concern for recurrent urinary tract infection. Patient reports back pain associated with her symptoms, however it is in the very low lumbar regions and not in the CVA regions. Urine does look cloudy and sediment tests on analysis. Laboratory work from May was reviewed, patient had very borderline low white blood cell count and normal hemoglobin. Laboratory work today is reviewed, there are no acute abnormalities. White blood cell count is within normal limits without left shift, hemoglobin normal, kidney function normal. Patient received IV fluids and is feeling improved. Vaginal panel is negative for BV, Monica, other pathogens. Patient was given an initial dose of Rocephin since it is the holidays and many pharmacies are about to close. She was given a prescription for antibiotics and instructed on their use. It was recommended that she follow-up with her [facility] for continued evaluation of her recurrent BV and Monica, however she is relieved to know that her panels today were negative. Departure - Departure Disposition: Home, Self Care Clinical Impression: UTI (urinary tract infection) Qualifiers: Urinary tract infection type: acute cystitis Condition: Stable Instructions: ED UTI Cystitis Female Prescriptions: Cefpodoxime Proxetil [Vantin] 200 mg PO Q12H #14 tablet Forms: PCP List Discharge Date/Time: 10/22/23 16:38
[2023-10-22 15:16] VITALS: O2SAT 99
[2023-10-22] MEDS ORDERED: cefTRIAXone 1 GM in SODIUM CHLORIDE 0.9% MINIBAG 100 ML IV STA (15:36)
[2023-10-22 16:11] LABS: BACTERIAL VAGINOSIS DNA NEGATIVE (NEGATIVE); CANDIDA GLABRATA DNA NEGATIVE (NEGATIVE); CANDIDA GROUP DNA NEGATIVE (NEGATIVE); CANDIDA KRUSEI DNA NEGATIVE (NEGATIVE); TRICHOMONAS VAGINALIS DNA NEGATIVE (NEGATIVE)
[2023-10-22 16:27] VITALS: BP 124/86
== END 2023-10-22 16:38 | disposition home or self-care (01) ==
LOC: ED 12:28
DX: N30.00 Acute cystitis without hematuria (principal)
CPT/HCPCS: 36415; 80053; 81001; 81003; 81025; 81514; 85025; 87086; 96365; 99283

== ENCOUNTER 2024-07-07 13:22 | Emergency (ER) | payer MEDICAID ==
[2024-07-07 13:30] VITALS: O2SAT 100
--- NOTE | 2024-07-07 14:42 | ED Physician Documentation ---
PD HPI SKIN - Stated complaint Stated Complaint: LT BREAST SORE/TENDER - Chief complaint Chief Complaint: General - History obtained from History obtained from: Patient - History of Present Illness Timing - onset: Today (she states has felt some tenderness and firmness of the breasts in areas intermittently for months, both breasts, and did hae some nipple discharge right side couple of weeks ago, resolved. Today with notable tenderness and feeeling swelling lateral left breast with some warmth, armpit node.) Timing - details: Intermittant Location: Other (left lateral breast.) Quality / character: Painful. No: Discolored Review of Systems Constitutional: reports: Myalgias, Fatigue. denies: Fever, Chills Skin: reports: Other (intermittent hives over past month or more. 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: Ovarian cysts Psych: Anxiety - Past Surgical History Past Surgical History: Yes /MEDICAL OFFICE TECHNICIAN: Oophrectomy - Present Medications Home Medications: Ambulatory Orders Medication Instructions Recorded Confirmed Cyanocobalamin (Vitamin B-12) 5,000 mcg PO DAILY 07/07/24 07/07/24 [Vitamin B12] Glucos Sul 2Kcl/MSM/Chond/C/Mn 1 each PO DAILY 07/07/24 07/07/24 [Glucosamine Chondroitin Cap] Lisinopril [Zestril] 20 mg PO DAILY 07/07/24 07/07/24 Naproxen 500 mg PO BID #20 tab 07/07/24 cephALEXin [Keflex] 500 mg PO TID #20 cap 07/07/24 - Allergies Allergies/Adverse Reactions: Allergies Allergy/AdvReac Type Severity Reaction Status Date / Time codeine Allergy Hives Verified 07/07/24 13:25 Penicillins Allergy Hives Verified 07/07/24 13:25 - Social History Does the pt smoke?: No Smoking Status: Never smoker Does the pt drink ETOH?: No Does the pt have substance abuse?: No - Immunizations Immunizations are current?: Yes Immunizations: TDAP current <10years - POLST Patient has POLST: No PD ED PE NORMAL - Vitals Vital signs reviewed: Yes - General General: Alert and oriented X 3, No acute distress, Well developed/nourished - Neck Neck: Supple, no meningeal sign, No adenopathy - Cardiac Cardiac: RRR, No murmur - Respiratory Respiratory: Clear bilaterally - Derm Derm: Normal color, Warm and dry, Other (No nipple discharge redness or swelling on either side. The lateral aspect of the left breast has some firmness and tenderness without any redness or warmth. Axilla has some mild adenopathy without mass per se. No skin changes noted.) - Neuro Neuro: Alert and oriented X 3, Normal speech - Psych Psych: Normal mood, Normal affect Results - Vitals Vitals: Vital Signs - 24 hr 07/07/24 07/07/24 07/07/24 13:25 15:10 16:16 Temperature 36.5 C Heart Rate 100 74 88 Respiratory 16 16 16 Rate Blood Pressure 150/90 H 144/94 H 121/80 O2 Saturation 100 100 100 07/07/24 17:46 Temperature 36.8 C Heart Rate 76 Respiratory 16 Rate Blood Pressure 121/82 H O2 Saturation 100 Oxygen O2 Source Room air - Labs Labs: Laboratory Tests 07/07/24 07/07/24 07/07/24 15:32 15:32 15:32 WBC 7.2 RBC 4.61 Hgb 12.3 Hct 39.3 MCV 85.2 MCH 26.7 L MCHC 31.3 L RDW 13.2 Plt Count 273 MPV 11.0 H Neut # (Auto) 4.9 Lymph # (Auto) 1.6 [place] # (Auto) 0.4 Eos # (Auto) 0.1 Baso # (Auto) 0.1 Absolute Nucleated RBC 0.00 Nucleated RBC % 0.0 ESR 7 Sodium 136 Potassium 3.6 Chloride 108 Carbon Dioxide 22 Anion Gap 6.0 BUN 13 Creatinine 0.8 Estimated GFR (MDRD) 79 L Glucose 106 H Calcium 9.2 Total Bilirubin 0.3 AST 11 ALT 7 L Alkaline Phosphatase 43 C-Reactive Protein < 0.5 Total Protein 6.1 L Albumin 3.7 Globulin 2.4 Albumin/Globulin Ratio 1.5 Lipase 30 TSH 2.68 Prolactin 6.72 Serum HCG, Qual Random Cortisol 5.0 07/07/24 15:32 WBC RBC Hgb Hct MCV MCH MCHC RDW Plt Count MPV Neut # (Auto) Lymph # (Auto) [place] # (Auto) Eos # (Auto) Baso # (Auto) Absolute Nucleated RBC Nucleated RBC % ESR Sodium Potassium Chloride Carbon Dioxide Anion Gap BUN Creatinine Estimated GFR (MDRD) Glucose Calcium Total Bilirubin AST ALT Alkaline Phosphatase C-Reactive Protein Total Protein Albumin Globulin Albumin/Globulin Ratio Lipase TSH Prolactin Serum HCG, Qual NEGATIVE Random Cortisol PD Medical Decision Making - ED course Complexity details: reviewed results (The patient's more generalized symptoms sound more either autoimmune with muscle aches and weakness and tiredness or potentially endocrine with weight loss and breast tissue firmness etc. We can check for autoimmune with sed rate and CRP as a segue into autoimmune disease. Also thyroid, chemistry.), considered differential, d/w patient Reviewed Lab Results: The initial blood test that we have back so far are not show any obvious abnormalities. TSH is in the normal range. Chemistry panel is good. She is not anemic by blood count. ESR is in the normal range at 7. Regarding the area of tenderness and firmness in the lateral left breast, I did do a soft tissue ultrasound or ordered 1 actually. Consideration for early mastitis. The skin itself does not have any redness but there is some firmness in the lateral aspect and some tenderness. I would treat with a combination of anti-inflammatory and antibiotics. The patient will need to follow-up with her primary care regarding other tests that we did today that are not reported back as yet as they are not stat labs. Further evaluation by her primary. If the main blood tests are normal, the patient's aggregation of symptoms could be accounted for by mood disorder such as depression or such. She does not present as a depressed affect. Therefore more inclined to think endocrine or autoimmune. ED course: The patient presents with couple of different complaints presumably. She has been noticing areas of tenderness and swelling variably in both breasts and did have some breast discharge from the nipple on the right side couple of weeks ago. Currently she is having tenderness and swelling on the lateral aspect of the left breast with a feeling of a lymph node in the left armpit. There is no redness or skin sores. Her other complaint is general fatigue and tiredness along with some recent weight gain and dry skin as well as variable appetite. She does notice discomfort in the upper abdomen periodically that is improved with food or eating. She does not take any regular acid reducing medicines. She denies headaches visual changes or imbalance. No localized weaknesses. Departure - Departure Disposition: 01 Home, Self Care Clinical Impression: Breast swelling, Fatigue, Weight gain, Mastitis Condition: Stable Record reviewed to determine appropriate education?: Yes Prescriptions: cephALEXin [Keflex] 500 mg PO TID #20 cap Naproxen 500 mg PO BID #20 tab Comments: Regarding your left breast tenderness. There is some firmness and swelling to the area. Ultrasound was done with the verbal results given. I would be concerned for early infection developing even though it is not overtly red and hot. Cephalexin antibiotic as directed along with naproxen anti-inflammatory. To that add acetaminophen/Tylenol 560 and 50 mg 4 times daily for the next sev eral days or so. See if that improves your symptoms. With regard to the fluctuating degree of some inflammation through the breast as well as fatigue and some weight gain etc., we did do some blood test to look for a range of possibilities including endocrine process such as diabetes or thyroid or cortisol abnormalities. These have resulted and are in the normal range. Your blood count is normal to without any anemia. Inflammatory markers to look for autoimmune process were normal. There are some other blood test still pending that will not result here this evening. Follow-up with your primary care regarding the remaining blood tests and you can also find them on the patient portal. At this point I do not have a answer for your generalized symptoms. Follow-up with your primary care regarding the further test results still pending and to discuss any further evaluation if those are to normal. Forms: PCP List Discharge Date/Time: 07/07/24 19:07
[2024-07-07] MEDS: NAPROXEN 250 MG TABLET PO STA (15:26)
[2024-07-07 15:39] LABS: BASOPHILS # (AUTO) 0.1 10^3/uL (0.0-0.1); BASOPHILS % (AUTO) 0.7 %; EOSINOPHILS # (AUTO) 0.1 10^3/uL (0.0-0.7); EOSINOPHILS % (AUTO) 1.8 %; HCT - HEMATOCRIT 39.3 % (37.0-47.0); HGB - HEMOGLOBIN 12.3 g/dL (12.0-16.0); LYMPHOCYTES # (AUTO) 1.6 10^3/uL (1.5-3.5); LYMPHOCYTES % (AUTO) 22.8 %; MEAN CORPUSCULAR HEMOGLOBIN 26.7 pg (27.0-31.0); MEAN CORPUSCULAR HGB CONC 31.3 g/dL (32.0-36.0); MEAN CORPUSCULAR VOLUME 85.2 fL (81.0-99.0); MONOCYTES # (AUTO) 0.4 10^3/uL (0.0-1.0); MONOCYTES % (AUTO) 6.1 %; NEUTROPHILS # (AUTO) 4.9 10^3/uL (1.5-6.6); NEUTROPHILS % (AUTO) 68.3 %; PLT - PLATELET COUNT 273 10^3/uL (130-450); RED BLOOD COUNT 4.61 10^6/uL (4.20-5.40); RED CELL DISTRIBUTION WIDTH 13.2 % (12.0-15.0); WHITE BLOOD COUNT 7.2 x10^3/uL (4.8-10.8)
[2024-07-07 15:58] LABS: ALBUMIN 3.7 g/dL (3.2-5.5); ALBUMIN/GLOBULIN RATIO 1.5 (1.0-2.2); ALKALINE PHOSPHATASE 43 IU/L (42-121); ALT ALANINE AMINOTRANSFERASE 7 IU/L (10-60); AST ASPARTATE AMINOTRANSFERASE 11 IU/L (10-42); BILIRUBIN,TOTAL 0.3 mg/dL (0.2-1.0); BUN - BLOOD UREA NITROGEN 13 mg/dL (6-20); CALCIUM 9.2 mg/dL (8.5-10.3); CARBON DIOXIDE - CO2 22 mmol/L (21-32); CHLORIDE 108 mmol/L (101-111); CREATININE 0.8 mg/dL (0.6-1.3); CRP - C-REACTIVE PROTEIN < 0.5 mg/dL (<0.5); GFR - MDRD 79 (>89); GLUCOSE 106 mg/dL (74-104); LIPASE 30 U/L (11-82); POTASSIUM 3.6 mmol/L (3.5-4.5); SODIUM 136 mmol/L (135-145); TOTAL PROTEIN 6.1 g/dL (6.4-8.9)
[2024-07-07 16:15] LABS: HCG,QUALITATIVE BLOOD NEGATIVE
[2024-07-07 16:22] LABS: THYROID STIMULATING HORMONE 2.68 uIU/mL (0.34-5.60)
[2024-07-07 16:29] LABS: PROLACTIN 6.72 ng/mL
[2024-07-07 17:52] VITALS: BP 121/82
[2024-07-07] MEDS: cephALEXin 250 MG CAPSULE PO STA (18:57)
--- NOTE | 2024-07-07 19:21 | Ultrasound Report ---
PROCEDURE: Breast Limited LT INDICATIONS: lateral breast pain, tender x few days TECHNIQUE: Real-time focused scanning was performed of the left breast(s), with image documentation and color Do ppler interrogation. COMPARISON: None. FINDINGS: No sonographic abnormality. IMPRESSION: No sonographic abnormality. BIRADS 1 Reviewed by: Mina Lopez MD on 07/07/2024 7:20 PM PDT Approved by: Mina Lopez MD on 07/07/2024 7:20 PM PDT Station ID: [id number]
[2024-07-09 13:11] LABS: ANTI-DNA (DS) AB QN <1 IU/mL (0-9); CENTROMERE B ANTIBODIES <0.2 AI (0.0-0.9); CHROMATIN ANTIBODIES <0.2 AI (0.0-0.9); JO-1 AB <0.2 AI (0.0-0.9); RIBOSOMAL P ANTIBODIES <0.2 AI (0.0-0.9); RNP ANTIBODIES <0.2 AI (0.0-0.9); SCLERODERMA-70 ANTIBODIES <0.2 AI (0.0-0.9); SJOGREN'S ANTI-SS-B <0.2 AI (0.0-0.9); SMITH ANTIBODIES <0.2 AI (0.0-0.9); SMITH/RNP ANTIBODIES <0.2 AI (0.0-0.9)
== END 2024-07-07 19:07 | disposition home or self-care (01) ==
LOC: ED 13:22
DX: N61.0 Mastitis without abscess (principal); R53.83 Other fatigue; R63.5 Abnormal weight gain; L85.3 Xerosis cutis; Z32.02 Encounter for pregnancy test, result negative
CPT/HCPCS: 36415; 76642; 80053; 82533; 83690; 84146; 84443; 84703; 85025; 85598; 85613; 85651; 85732; 86140; 86225; 86235; 99284; A9270